=== PATIENT | male | born 1950 | race Caucasian/White ===

== ENCOUNTER → 2017-10-05 | Day surgery (SDC) | payer BC ==
[~2017-10-05] MED LIST: Lactated Ringers 1,000 ML IV SCH
--- NOTE | 2017-10-08 09:21 | OR ---
DATE OF OPERATION: 10/05/2017 PREOPERATIVE DIAGNOSIS: IRON-DEFICIENCY ANEMIA. POSTOPERATIVE DIAGNOSIS: IRON-DEFICIENCY ANEMIA. SURGEON: Hemant Trammell MD PROCEDURE: 1. EGD WITH BIOPSY X2, ALBERTO. 2. FULL-LENGTH COLONOSCOPY. ANESTHESIA: GERIATRIC PERSONAL CARE AIDE due to history of GERD. COMPLICATIONS: None. SPECIMEN: 1. Distal esophageal biopsy x2. 2. ALBERTO. FINDINGS: 1. Full-length EGD. 2. Reflux esophagitis with short segment Franco's changes and ulceration. 3. Full-length colonoscopy. 4. Mild sigmoid diverticulosis. RECOMMENDATIONS: Routine medical followup pending path report. We will initiate proton pump therapy. INDICATIONS: The patient has a history of pancytopenia and he sees Oncology regularly. Recently, he was found to have low iron levels. They recommended upper and lower endoscopy. DESCRIPTION OF PROCEDURE: The patient was prepped and draped, placed in left lateral decubitus position. A lubricated Olympus gastroscope was inserted over a bit and advanced to cricopharyngeus area and easily intubated in the esophagus. Esophageal lining was benign until its most distal portion where the patient had some reflux esophagitis. There were possibly 2 small areas of short segment Franco's changes and 1 area of esophagitis what looks like a healed ulceration. We did 2 biopsies of the affected area for confirmation. Scope was advanced into the stomach through the pylorus into the 2nd portion of duodenum. This and the duodenal bulb were benign. The scope was brought back into the stomach and retroflexed. The upper fundus and cardia were unremarkable. A thorough evaluation of the gastric lining showed no signs of any polyps, mass, ulceration, or peptic ulcer disease. A CLOtest was obtained of the antrum. Air was then suctioned from the stomach and the scope removed without complication. A lubricated Olympus colonoscope was then inserted and easily advanced to the cecum. Direct visualization of the ileocecal valve and appendiceal orifice was accomplished. The bowel prep was fine. Upon withdrawal of the scope, the entire length of the colon was evaluated. I could find no polyps, masses, ulcerations, or bleeding sites. No vascular abnormalities or signs of colitis. The patient did have some mild diverticular disease, mostly the mid to distal sigmoid and in the rectosigmoid junction without any acute inflammatory change. The rectal vault was unremarkable. Retroflexion of scope in the rectum showed no perianal lesions. Air was suctioned and scope removed without complication. EMBER/CATHERINE /[id number]
== END ==
LOC: CC.SDS 09:59
PROVIDERS: ATTEND Family Medicine
DX: K57.30 Diverticulosis of large intestine without perforation or abscess without bleeding (principal); K22.70 Barrett's esophagus without dysplasia; I10 Essential (primary) hypertension; E78.00 Pure hypercholesterolemia, unspecified; Z79.899 Other long term (current) drug therapy; Z87.891 Personal history of nicotine dependence
CPT/HCPCS: 87081; J7120